=== PATIENT | female | born 1965 | race Caucasian/White ===

== ENCOUNTER 2021-02-01 14:16 | Outpatient (CLI) | payer OTHER | END 2021-02-01 14:17 | disposition home or self-care (01) | LOC: BICMAMMO 14:16 | PROVIDERS: ATTEND Nurse Practitioner | DX: Z12.31 Encounter for screening mammogram for malignant neoplasm of breast (principal) | CPT/HCPCS: 77063; 77067 ==

== ENCOUNTER 2021-04-11 13:15 | Outpatient (CLI) | payer OTHER ==
[~2021-04-11 13:15] MED LIST: Iopamidol-370 76% 500 ML 1 ML ONE
== END 2021-04-11 13:16 | disposition home or self-care (01) ==
LOC: BICCT 13:15
PROVIDERS: ATTEND Urology
DX: R31.29 Other microscopic hematuria (principal); K38.8 Other specified diseases of appendix
CPT/HCPCS: 74178; Q9967

== ENCOUNTER 2022-03-10 13:24 | Outpatient (CLI) | payer OTHER | END 2022-03-10 13:25 | disposition home or self-care (01) | LOC: BICCT 13:24 | PROVIDERS: ATTEND Nurse Practitioner | DX: Z12.31 Encounter for screening mammogram for malignant neoplasm of breast (principal); Z12.2 Encounter for screening for malignant neoplasm of respiratory organs; F17.210 Nicotine dependence, cigarettes, uncomplicated | CPT/HCPCS: 71271; 77063; 77067 ==

== ENCOUNTER 2022-11-30 16:25 | Outpatient (CLI) | payer OTHER ==
[2022-11-30 17:45] LABS: #Basophils 0.1 10x3/uL (0.0-0.2); #Eosinphils 0.2 10x3/uL (0.0-0.5); #Monocytes 0.6 10x3/uL (0.0-1.1); #Neutrophils 4.3 10x3/uL (1.5-8.4); %Basophils 1.3 % (0.0-2.0); %Eosinophils 3.1 % (0.0-6.0); %Monocytes 7.7 % (0.0-10.0); %Neutrophils 55.6 % (40.0-75.0); Mean Corpuscular HGB CONC 34.7 g/dL (32.0-36.0); Mean Corpuscular Hemoglobin 32.8 pg (27.0-33.0); Mean Corpuscular Volume 94.4 fl (81.6-98.3); Mean Platelet Volume 9.9 fl (7.4-10.4); Platelet Count 247 10x3/uL (150-450); RBC Distribution Width 12.4 % (11.5-14.5); Red Blood Cell (RBC) Count 4.27 10x6/uL (3.90-5.03); White Blood Cell (WBC) Count 7.8 10x3/uL (3.5-10.5)
[2022-11-30 18:02] LABS: Anion Gap 14 mmol/L (10-20); BUN (Urea Nitrogen) 7 mg/dL (9.8-20.1); Calc. Creatinine Clearance 0 mL/min (70-130); Calcium 9.3 mg/dL (7.8-10.44); Carbon Dioxide 23 mmol/L (22-29); Chloride 106 mmol/L (98-107); Estimated GFR 89; Glucose 84 mg/dL (70-105); Potassium 4.4 mmol/L (3.5-5.1); Sodium 139 mmol/L (136-145)
== END 2022-11-30 16:26 | disposition home or self-care (01) ==
LOC: LABBT 16:25
PROVIDERS: ATTEND Specialist
DX: Z01.818 Encounter for other preprocedural examination (principal); K42.9 Umbilical hernia without obstruction or gangrene
CPT/HCPCS: 80048; 85025; 93005; 93010

== ENCOUNTER 2022-12-01 07:31 | Day surgery (SDC) | payer OTHER ==
[2022-11-30 11:32] VITALS: BMI 19.3
[2022-12-01] MEDS ORDERED: Gabapentin 300 MG CAP ONE (08:06)
[2022-12-01] MEDS ORDERED: Acetaminophen 500 MG TAB ONE (08:06)
[2022-12-01] MEDS ORDERED: Ketorolac Tromethamine 30 MG/ML VIAL ONE (08:06)
[2022-12-01] MEDS ORDERED: Bupivacaine/Epinephrine 0.25% 30 ML VIAL ONE ×2 (09:08→10:30)
[2022-12-01] MEDS ORDERED: Fentanyl 250 MCG/5 ML VIAL ONE (09:12)
[2022-12-01] MEDS ORDERED: Midazolam HCl 2 mg/2 ml Vial ONE (09:12)
[2022-12-01] MEDS ORDERED: SUGAMMADEX SODIUM 200 MG/2 ML VIAL ONE (09:12)
[2022-12-01] MEDS ORDERED: Sodium Chloride 0.9% 100 ML ONE (10:04)
[2022-12-01] MEDS ORDERED: CEFAZOLIN 2 GM VIAL ONE (10:04)
[2022-12-01] MEDS ORDERED: Ropivacaine 0.5% HCl/PF (150 MG/30 ML VIAL) ONE (10:05)
[2022-12-01] MEDS ORDERED: Dexamethasone 4 mg/ml Vial ONE (10:05)
[2022-12-01] MEDS ORDERED: Rocuronium Bromide 10 MG/ML (10ML VIAL) ONE (10:15)
[2022-12-01] MEDS ORDERED: PROPOFOL 200 MG/20 ML VIAL ONE (10:15)
[2022-12-01] MEDS ORDERED: Dexamethasone 20 MG/5 ML VIAL ONE (10:15)
[2022-12-01] MEDS ORDERED: Ondansetron PF 4 MG/2 ML Vial ONE (10:15)
[2022-12-01] MEDS ORDERED: Lidocaine 1% (PF) 30 ML VIAL ONE (10:23)
[2022-12-01] MEDS ORDERED: EPINEPHrine 1 MG/ML AMP ONE (10:23)
[2022-12-01] MEDS ORDERED: Meperidine HCl/PF 25 MG/ML VIAL ONE (12:01)
[2022-12-01] MEDS ORDERED: Fentanyl 100 MCG/2 ML VIAL ONE (12:29)
[2022-12-01] MEDS ORDERED: HYDROcodone/Acetaminophen 5/325 mg Tablet ONE (13:23)
== END 2022-12-01 14:09 | disposition home or self-care (01) ==
LOC: SDC 07:31
PROVIDERS: ATTEND Specialist
PROC: 0WUF4JZ Supplement Abdominal Wall with Synthetic Substitute, Percutaneous Endoscopic Approach (ICD-10-PCS; principal; 2022-12-01)
PROC: 8E0W4CZ Robotic Assisted Procedure of Trunk Region, Percutaneous Endoscopic Approach (ICD-10-PCS; principal; 2022-12-01)
DX: K42.9 Umbilical hernia without obstruction or gangrene (principal); I10 Essential (primary) hypertension; F17.210 Nicotine dependence, cigarettes, uncomplicated; Z79.899 Other long term (current) drug therapy
CPT/HCPCS: C1781; C1889; J0171; J1100; J1885; J2001; J2175; J2250; J2795; J3010; J3490

== ENCOUNTER 2023-03-23 09:00 | Day surgery (SDC) | payer OTHER ==
[2023-03-22 16:43] VITALS: BMI 18.9
[2023-03-23] MEDS ORDERED: PROPOFOL 200 MG/20 ML VIAL ONE (12:27)
[2023-03-23] MEDS ORDERED: Lidocaine 1% PF 5 ML VIAL ONE (12:27)
== END 2023-03-23 14:21 | disposition home or self-care (01) ==
LOC: SDC 09:00
PROVIDERS: ATTEND Internal Medicine Gastroenterology
PROC: 0DC68ZZ Extirpation of Matter from Stomach, Via Natural or Artificial Opening Endoscopic (ICD-10-PCS; principal; 2023-03-23)
DX: T18.2XXA Foreign body in stomach, initial encounter (principal); K25.9 Gastric ulcer, unspecified as acute or chronic, without hemorrhage or perforation; K21.9 Gastro-esophageal reflux disease without esophagitis; F17.210 Nicotine dependence, cigarettes, uncomplicated; Z79.899 Other long term (current) drug therapy; Z98.890 Other specified postprocedural states; X58.XXXA Exposure to other specified factors, initial encounter
CPT/HCPCS: J2704

== ENCOUNTER 2023-05-08 14:11 | Outpatient (CLI) | payer OTHER | END 2023-05-08 14:12 | disposition home or self-care (01) | LOC: BICMAMMO 14:11 | PROVIDERS: ATTEND Nurse Practitioner | DX: Z12.31 Encounter for screening mammogram for malignant neoplasm of breast (principal) | CPT/HCPCS: 77063; 77067 ==

== ENCOUNTER 2024-05-02 14:44 | Outpatient (CLI) | payer BC | END 2024-05-02 14:45 | disposition home or self-care (01) | LOC: SCSMRI 14:44 | PROVIDERS: ATTEND Orthopaedic Surgery | DX: M75.101 Unspecified rotator cuff tear or rupture of right shoulder, not specified as traumatic (principal); M19.011 Primary osteoarthritis, right shoulder ==